=== PATIENT | female | born 2000 ===

== ENCOUNTER 2021-08-06 15:05 | Emergency (ER) | payer OTHER ==
[~2021-08-06] VITALS: Ht 147.3 cm; Wt 43.0 kg
[2021-08-06] MEDS ORDERED: SULTRIDS PO (18:18)
[2021-08-06] MEDS ORDERED: METR500 PO (18:18)
== END 2021-08-06 18:40 | disposition home or self-care (01) ==
LOC: ER 15:05
DX: N75.1 Abscess of Bartholin's gland (principal); Z91.040 Latex allergy status; Z88.8 Allergy status to other drugs, medicaments and biological substances
CPT/HCPCS: 56420; 99282-25; A9270